=== PATIENT | female | born 1950 | race Caucasian/White ===

== ENCOUNTER 2018-03-30 11:34 | Outpatient (CLI) | payer MEDICARE, BC | END 2018-03-30 23:59 | disposition home or self-care (01) | LOC: D.MAMMO 11:34 | DX: Z12.31 Encounter for screening mammogram for malignant neoplasm of breast (principal) ==

== ENCOUNTER → 2018-04-26 12:50 | Outpatient (CLI) | payer MEDICARE, BC | END | disposition home or self-care (01) | LOC: D.MRI 12:50 | DX: M54.12 Radiculopathy, cervical region (principal) ==

== ENCOUNTER → 2018-07-10 12:57 | Outpatient (CLI) | payer MEDICARE, BC ==
[~2018-07-10 12:57] MED LIST: DESERYL50 M2 PO; ESTRACE2 MG PO; FIBER-TABS625 MG PO; FLUTICASONE PRO16 GM NASAL; LEVOTHYROXINE50 MCG PO; OXYCODONE HCL5 M1 PO; PRINIVIL20 MG PO; PROTONIX FOR OR40 MG PT; VISTARIL50 MG PO; ZOLOFT100 MG PO; ZOVIRAX400 MG PO
[2018-08-10 08:03] VITALS: BMI 24.6
== END | disposition home or self-care (01) ==
LOC: D.MRI 12:57
DX: M25.512 Pain in left shoulder (principal)

== ENCOUNTER 2018-08-10 06:40 | Day surgery (SDC) | payer MEDICARE, BC ==
[2018-08-09 10:50] LABS: HEMOGLOBIN 12.7 g/dL (12-16); MCH 33.7 pg (26.0-34.0); MCHC 34.3 g/dL (31.0-37.0); MCV 98.1 fL (80.0-100.0); MEAN PLATELET VOLUME 10.3 fL (7.4-10.4); RBC 3.77 10x6/uL (4.00-5.40); RDW 13.3 % (11.5-14.5); WBC 7.1 10x3/uL (4.8-10.8)
[~2018-08-10] VITALS: Ht 170.2 cm; Wt 71.4 kg
--- NOTE | ~2018-08-10 | OP ---
PATIENT NAME: EDY PORTILLO MEDICAL RECORD: [id number] :48 LOCATION:[facility] ADMISSION DATE: SURGEON: YANELI STERLING DO DATE OF OPERATION: 08/10/2018 PROCEDURE PERFORMED: Left shoulder arthroscopy with bicep tenodesis, labral debridement, subacromial decompression, distal clavicle excision, rotator cuff repair. PREOPERATIVE DIAGNOSES: Left shoulder rotator cuff repair, SLAP tear, subacromial impingement and acromioclavicular joint arthritis. POSTOPERATIVE DIAGNOSES: Left shoulder rotator cuff repair, SLAP tear, subacromial impingement and acromioclavicular joint arthritis. INDICATIONS: Ms. Portillo is a 67-year-old female who presented to my office having left shoulder pain and x-rays were done and MRI was done, which demonstrated a left full thickness rotator cuff tear of the shoulder, also AC joint arthritis, and questionable SLAP tear. The patient was informed that we could try therapy with nonoperative management and she had already been through some conservative management for this and she wanted it fix. She was tired of having a weak arm and not be able do things, her activities of daily living without pain. She was informed of the risks and benefits of the procedure including damage to nerves and vessels, infection, bleeding, need for further surgery, and she consented to the procedure. DESCRIPTION OF PROCEDURE: The patient was given a block by anesthesia in the preoperative area and taken to the operative suite, laid in the right lateral decubitus position, given 900 mg of clindamycin preoperatively. Once the clindamycin was given, a timeout was performed and everyone was in agreement with the correct side, site, patient and procedure. The left shoulder was then prepped and draped in sterile fashion. 60 mL of normal saline was then injected into the shoulder joint through the posterior portal site. Posterior portal was established with an 11-blade scalpel and then the shoulder joint was entered. The SLAP tear was noted. The anterior portal was established with an 18-blade spinal needle and 11-blade scalpel. Then a burner was brought in through the anterior portal and the biceps was tenotomized and the labrum was debrided. The rotator cuff tear was seen on the articular side. At that point, there were no loose bodies seen in the inferior gutter and the cartilage seemed to be intact on the humerus and glenoid. The subscapularis tendon was inspected as well and no sukh tears were seen. The subacromial space was then entered. The tear on the rotator cuff on the bursal side was seen, more posterior on the cuff. The subacromial space was then decompressed and the anterolateral acromion was partially removed. The AC joint was then opened up as well. Spurs were taken off the distal clavicle and a part of the distal clavicle was removed open of the AC joint to 7 mm. After this was performed, the shoulder was opened over the lateral portal that had been established with an 18-gauge spinal needle and 11-blade scalpel. This was opened up with a 15-blade scalpel. Careful dissection was made down through the deltoid fascia to the rotator cuff tear. The bursa was removed and the tear was noted. The greater tuberosity was then decorticated and a SpeedBridge from [employer] was used and anterior and posterior anchor were placed. The tendon was stitched through with a scorpion needle and then the 2 free nontape sutures were tied down and then the suture tape was crossed 1 anterior and 1 posterior and 2 lateral anchors were used on the humerus to secure the cuff into place and had a very nice repair of the cuff. OPERATIVE REPORT [id number] EDY PORTILLO Retractor was then removed and the shoulder was irrigated and then the biceps tenodesis site incision was made on the anterior humerus. Dissection was made down to the subpectoral region of the anterior humerus. The biceps tendon was fished out and whipstitched and then a hole was drilled into the humerus and cinched down the bicep with a single button unicortically on the humerus. This was tied down and then a free needle was used to go back through the bicep tendon. This was tied down securing the bicep into place. Excess suture and tendon were then cut with scissors. The site was then thoroughly irrigated and closed with 2-0 Vicryl in inverted interrupted fashion and 4-0 Monocryl on the skin. The deltoid fascia was closed with a 2-0 Vicryl in a [id number] pattern and then over the open rotator cuff site 2-0 Vicryl in interrupted fashion on the skin and 4-0 Monocryl ran on the skin. The anterior and posterior portal sites were closed with 4-0 Monocryl in an inverted interrupted fashion and then Dermabond was placed over each of the wounds and Telfa and Tegaderm were placed on them. The patient was put in a sling and awakened and taken to recovery in stable condition. COMPLICATIONS: None. BLOOD LOSS: Minimal. TRANSINT:[id number] Voice Confirmation ID: [id number] DOCUMENT ID: [id number] YANELI STERLING DO at 1155 CC: YONATHAN WRAY MD [id number] DICTATION DATE: 08/10/18 1040 CONVEYANCER: 08/10/18 1059 [id number] [place] [id number]
[~2018-08-10 06:40] MED LIST changes: -OXYCODONE HCL5 M1 PO; -VISTARIL50 MG PO
[2018-08-10 08:03] VITALS: BP 131/77; Ht 170.2 cm; Wt 71.4 kg
[2018-08-10] MEDS ORDERED: OXYCODONE HCL5 M1 PO (10:33)
[2018-08-10] MEDS ORDERED: VISTARIL50 MG PO (10:33)
== END 2018-08-10 12:26 | disposition home or self-care (01) ==
LOC: D.OPS 06:40 → D.PAN 08:35 → D.OPS 08:45
PROVIDERS: Anesthesiology
DX: M75.122 Complete rotator cuff tear or rupture of left shoulder, not specified as traumatic (principal); S43.432A Superior glenoid labrum lesion of left shoulder, initial encounter; X58.XXXA Exposure to other specified factors, initial encounter; M75.42 Impingement syndrome of left shoulder; M13.812 Other specified arthritis, left shoulder; Z01.812 Encounter for preprocedural laboratory examination

== ENCOUNTER 2018-08-26 13:38 | Emergency (ER) | payer MEDICARE, BC ==
[~2018-08-26] VITALS: Ht 170.2 cm; Wt 71.8 kg
[~2018-08-26 13:38] MED LIST changes: +OXYCODONE HCL5 M1 PO; +VISTARIL50 MG PO
[2018-08-26 13:45] VITALS: Ht 170.2 cm; Wt 71.8 kg
[2018-08-26] MEDS ORDERED: PHENERGAN25 M1 PO (19:19)
[2018-08-26] MEDS ORDERED: ULTRAM50 MG PO (19:19)
[2018-08-26 19:35] VITALS: BP 149/782
== END 2018-08-26 19:38 | disposition home or self-care (01) ==
LOC: D.ER 13:38
DX: T40.2X5A Adverse effect of other opioids, initial encounter (principal); Y92.019 Unspecified place in single-family (private) house as the place of occurrence of the external cause; I10 Essential (primary) hypertension

== ENCOUNTER 2018-09-21 18:55 | Emergency (ER) | payer MEDICARE, BC ==
[~2018-09-21] VITALS: Ht 170.2 cm; Wt 72.7 kg
[~2018-09-21 18:55] MED LIST changes: +PHENERGAN25 M1 PO; +ULTRAM50 MG PO
[2018-09-21 19:09] VITALS: Ht 170.2 cm; Wt 72.7 kg
[2018-09-21] MEDS ORDERED: TORADOL10 MG PO (21:20)
[2018-09-21 21:31] VITALS: BP 144/74
== END 2018-09-21 21:31 | disposition home or self-care (01) ==
LOC: D.ER 18:55
DX: S42.102A Fracture of unspecified part of scapula, left shoulder, initial encounter for closed fracture (principal); V43.52XA Car driver injured in collision with other type car in traffic accident, initial encounter; Y93.89 Activity, other specified; Y92.410 Unspecified street and highway as the place of occurrence of the external cause; S40.012A Contusion of left shoulder, initial encounter; S46.812A Strain of other muscles, fascia and tendons at shoulder and upper arm level, left arm, initial encounter; R51 Headache

== ENCOUNTER 2019-11-03 14:48 | Emergency (ER) | payer MEDICARE, BC ==
[~2019-11-03] VITALS: Ht 170.2 cm; Wt 65.9 kg
[~2019-11-03 14:48] MED LIST changes: +TORADOL10 MG PO
[2019-11-03 15:02] VITALS: Ht 170.2 cm; Wt 65.9 kg
[2019-11-03 15:54] VITALS: BP 115/60
== END 2019-11-03 15:55 | disposition home or self-care (01) ==
LOC: D.ER 14:48
DX: Z51.89 Encounter for other specified aftercare (principal); R04.0 Epistaxis; I10 Essential (primary) hypertension

== ENCOUNTER 2021-04-09 13:58 | Emergency (ER) | payer MEDICARE, BC ==
[~2021-04-09] VITALS: Ht 170.2 cm; Wt 77.3 kg
[2021-04-09 14:28] VITALS: Ht 170.2 cm; Wt 77.3 kg
[2021-04-09] MEDS ORDERED: MOTRIN600 MG PO (15:16)
[2021-04-09] MEDS ORDERED: HYDROCODON-ACE1 EAC7 PO (15:16)
[2021-04-09 15:56] VITALS: BP 132/77
== END 2021-04-09 15:57 | disposition home or self-care (01) ==
LOC: D.ER 13:58
DX: S20.229A Contusion of unspecified back wall of thorax, initial encounter (principal); I10 Essential (primary) hypertension